=== PATIENT | female | born 1985 | race Caucasian/White ===

== ENCOUNTER → 2018-10-23 12:52 | Outpatient (CLI) | payer OTHER, SELFPAY ==
--- NOTE | 2018-10-23 | DI.MRI.S_ITS ---
PROCEDURE: MR SHOULDER RT W CON INDICATIONS: PAIN IN RIGHT SHOULDER TECHNIQUE: After the administration of 12 mL of dilute intra-articular Gadolinium contrast, oblique coronal T1 and T2 spin echo with fat saturation, oblique sagittal T1 spin echo with and without fat saturation, oblique sagittal T2 fast spin echo with fat saturation, axial T1 spin echo with fat saturation through the shoulder. COMPARISON: None. FINDINGS: Image quality: Excellent. Rotator cuff: The supraspinatus, infraspinatus, teres minor tendon appears intact. There is presumed post injection change of the subscapularis tendon. No rotator cuff muscle atrophy on sagittal images. Bones and bursae: No bone marrow contusions or fractures. No acromioclavicular joint degeneration. The acromion demonstrates conventional anatomy, without an os acromiale. Capsule and soft tissues: The labrum and glenohumeral ligaments appear intact. The long head of the biceps tendon demonstrates normal location and morphology. The rotator interval appears normal, without fibrosis. The coracohumeral ligament is of normal thickness. No intra-articular bodies. IMPRESSION: Overall, no internal derangement identified. Subscapularis tendon probably intact although suboptimally evaluated due to post injection sequela. Dictated by: Alexandre Sylvester M.D. on 10/23/2018 at 15:04 Approved by: Alexandre Sylvester M.D. on 10/23/2018 at 15:08
--- NOTE | 2018-10-23 | DI.RAD.S_ITS ---
PROCEDURE: FL SHOULDER INJECTION MR/CT RT INDICATIONS: PAIN IN RIGHT SHOULDER TECHNIQUE: The indications, alternatives, benefits, risks, and complications of the procedure were explained to the patient. Written informed consent was obtained and placed in the chart. The shoulder was examined fluoroscopically and a site for needle placement chosen for entry into the glenohumeral joint from an anterior approach. The skin was prepped and draped in a sterile fashion, and 1% lidocaine infiltrated from skin down to joint capsule. A spinal needle was inserted into the glenohumeral joint, and a small amount of iodinated contrast media injected to confirm intra-articular placement of the needle tip. This was followed by approximately 12 mL dilute solution of a gadolinium containing MR contrast agent. The needle was removed and a dressing was applied. The patient was given postprocedural instructions and sent to the MR suite for MR imaging. FINDINGS: A single fluoroscopic spot image demonstrates intra-articular location of injected iodinated contrast. IMPRESSION: Successful fluoroscopically guided administration of dilute Gadolinium solution into the shoulder joint for MR arthrogram. Dictated by: Lachelle Mosher M.D. on 10/23/2018 at 16:18 Approved by: Lachelle Mosher M.D. on 10/23/2018 at 16:19
== END ==
PROVIDERS: Visit Provider Student in an Organized Health Care Education/Training Program
DX: M25.511 Pain in right shoulder (principal)
CPT/HCPCS: 23350; 73040; 73222; 77002

== ENCOUNTER → 2021-10-23 10:32 | Outpatient (CLI) | payer OTHER, SELFPAY ==
--- NOTE | 2021-10-23 | DI.MRI.S_ITS ---
PROCEDURE: MR HIP RT W CON INDICATIONS: PAIN IN RIGHT HIP TECHNIQUE: After the administration of 10 mL of dilute intra-articular Gadolinium contrast, coronal STIR of the bony pelvis; coronal and oblique axial T1 spin echo with fat saturation, axial T2 fast spin echo with fat saturation, sagittal T1 spin echo with and without fat saturation of the involved hip. COMPARISON: None. FINDINGS: BONES AND JOINTS: Osseous structures: No fracture identified. Sacroiliac joints: Unremarkable in signal intensity. Lower lumbar spine: Diffuse spondylosis and facet arthropathy. Other: No evidence of osteonecrosis. TENDONS AND LIGAMENTS: Gluteus medius and minimus tendons: There is mild gluteus minimus insertional tendinopathy. The gluteus medius tendon appears intact. Proximal iliotibial band: Intact. Iliopsoas tendon: Intact. Origin of the hamstring tendon: Intact. Rectus femoris muscle origins: Intact Ligamentum teres: Intact where visualized. LABRUM: Labrum: At the anterosuperior and superior segment, there is curvilinear focus of gadolinium contrast material subjacent to the labrum demonstrating partial-thickness involvement and smooth margins. This therefore probably represents sublabral sulcus rather than tear. Furthermore, no segmental degenerative changes are seen at the acetabulum . No associated chondral loss Alpha angle of the femur: Within normal limits at less than 55 degrees. However, there is a small dysplastic osseous bump at the anterior femoral head neck junction SOFT TISSUES: Visualized muscles: Normal bulk and internal signal. Quadratus femoris muscle: Normal. Proximal sciatic neurovascular bundle: Normal adjacent to the hamstring tendons. Other: No pelvic free fluid. Bladder: Normal. Genitourinary structures and bowel loops: Normal where visualized. IMPRESSION: Small clefts of intra-articular gadolinium contrast material subjacent to the anterosuperior and superior labrum. At the superior segment, this likely represents incidental sublabral sulcus. At the anterosuperior segment, there is near full-thickness involvement although still smooth margins and absence of degenerative changes. This could still could represent incidental sublabral sulcus (anatomic variant), although differential includes early labral tear without development of associated degenerative changes. Please correlate clinically to exam findings. Mild insertional gluteus minimus tendinopathy. Small dysplastic osseous bump at the anterior femoral head neck junction . Dictated by: Alexandre Sylvester M.D. on 10/23/2021 at 16:42 Approved by: Alexandre Sylvester M.D. on 10/23/2021 at 17:24
--- NOTE | 2021-10-23 | DI.RAD.S_ITS ---
PROCEDURE: FL HIP INJECTION MR/CT RT INDICATIONS: PAIN IN RIGHT HIP TECHNIQUE: The indications, alternatives, benefits, risks, and complications of the procedure were explained to the patient. Written informed consent was obtained and placed in the chart. The hip was examined fluoroscopically with the legs fixed in slight internal rotation, and a site for needle placement chosen for entry into the hip joint from an anterior approach. Care was taken to locate the common femoral artery and vein beforehand. The skin was prepped and draped in a sterile fashion, and 1% Lidocaine infiltrated from skin down to joint capsule. A spinal needle was inserted into the joint, and a small amount of iodinated contrast media injected to confirm intra-articular placement of the needle tip. This was followed by approximately 10 mL dilute solution of a gadolinium containing MR contrast agent. The needle was removed and a dressing was applied. The patient was given postprocedural instructions and sent to the MR suite for imaging. COMPARISON: None. FINDINGS: A single fluoroscopic spot image demonstrates intra-articular location of injected iodinated contrast. IMPRESSION: Successful fluoroscopically guided administration of dilute Gadolinium solution into the hip joint for MR arthrogram. Dictated by: Alexandre Sylvester M.D. on 10/23/2021 at 17:28 Approved by: Alexandre Sylvester M.D. on 10/23/2021 at 17:28
== END ==
DX: M25.551 Pain in right hip (principal)
CPT/HCPCS: 27093; 73722; 77002